=== PATIENT | female | born 1960 | race African-American/Black ===

== ENCOUNTER → 2020-03-22 | Day surgery (SDC) | payer OTHER ==
[~2020-03-22] MED LIST: LIDOCAINE HCL 1% 20ML VIAL (Pyxis) INJ ONE; SODIUM BICARBONATE 4% (2.4MEQ) 5ML VIAL IV ONE
== END | disposition home or self-care (01) ==
LOC: RAD 08:12
PROVIDERS: ATTEND Surgery
DX: C50.212 Malignant neoplasm of upper-inner quadrant of left female breast (principal)
CPT/HCPCS: 19285; J3490

== ENCOUNTER → 2020-03-25 | Outpatient (CLI) | payer OTHER ==
[~2020-03-25] MED LIST changes: +AMLO10TA80 PO; +AMLODIPI; +ATOR40TA70 PO; +HYDR25TA PO; -LIDOCAINE HCL 1% 20ML VIAL (Pyxis) INJ ONE; +LOSA50TA41 MT; +METF-414 PO; -SODIUM BICARBONATE 4% (2.4MEQ) 5ML VIAL IV ONE
== END | disposition home or self-care (01) ==
LOC: LAB 10:46
PROVIDERS: ATTEND Surgery
DX: Z03.818 Encounter for observation for suspected exposure to other biological agents ruled out (principal)
CPT/HCPCS: 87635; C9803-CS; U0003-CS

== ENCOUNTER 2020-03-27 05:50 | Day surgery (SDC) | payer OTHER ==
[~2020-03-27] VITALS: Ht 170.2 cm; Wt 118.8 kg
[2020-03-27] MEDS ORDERED: LOSA50TA41 MT (07:08)
[2020-03-27] MEDS ORDERED: AMLODIPI (07:08)
[2020-03-27] MEDS ORDERED: METF-414 PO (07:08)
[2020-03-27] MEDS ORDERED: AMLO10TA80 PO (07:10)
[2020-03-27] MEDS ORDERED: ATOR40TA70 PO (07:10)
[2020-03-27] MEDS ORDERED: HYDR25TA PO (07:10)
[2020-03-27] MEDS ORDERED: SODIUM CHLORIDE 0.9% 1,000 ML IV SCH (07:30)
[2020-03-27] MEDS ORDERED: METHYLENE BLUE 50 MG/10 ML AMP IV ONE (08:16)
[2020-03-27] MEDS ORDERED: SKIN ADHESIVE 0.7 GM EA TOP ONE (08:17)
[2020-03-27] MEDS ORDERED: SODIUM CHLORIDE 0.9% 10ML VIAL ONE ×3 (08:17→11:27)
[2020-03-27] MEDS ORDERED: BUPIVACAINE HCL 0.5% (5MG/ML) 50ML ONE (08:17)
[2020-03-27] MEDS ORDERED: INSULIN REGULAR (HUMULIN R) 300UNITS/3ML SUBCUT NR (08:19)
[2020-03-27] MEDS ORDERED: INSULIN REGULAR (HUMULIN R) UD 100 UNITS/ML SYR SUBCUT NR (08:30)
[2020-03-27] MEDS ORDERED: FENTANYL CITRATE/PF 50MCG/ML 2ML VIAL ONE (09:25)
[2020-03-27] MEDS ORDERED: MIDAZOLAM HCL 2 MG/2 ML VIAL ONE (09:26)
[2020-03-27] MEDS ORDERED: PROPOFOL 200MG/20ML VIAL IV ONE (09:27)
[2020-03-27] MEDS ORDERED: SUCCINYLCHOLINE CHLORIDE 200MG/10ML IV ONE (09:30)
[2020-03-27] MEDS ORDERED: ROCURONIUM BROMIDE 10MG/ML VIAL 5ML IV ONE (09:31)
[2020-03-27] MEDS ORDERED: ESMOLOL HCL 10MG/ML 10ML VIAL IV ONE (09:34)
[2020-03-27] MEDS ORDERED: CEFAZOLIN SODIUM 1000MG/VIAL ONE (09:47)
[2020-03-27] MEDS ORDERED: DEXAMETHASONE 4MG/ML 1ML VIAL ONE (10:01)
[2020-03-27] MEDS ORDERED: ONDANSETRON HCL 4MG/2ML INJ ONE (10:01)
[2020-03-27] MEDS ORDERED: EPHEDRINE SULFATE 50MG/ML VIAL ONE (10:12)
[2020-03-27] MEDS ORDERED: HYDRALAZINE 20MG/ML VIAL ONE (11:27)
[2020-03-27] MEDS: HYDROMORPHONE HCL/PF 2MG/ML CPJ IV PRN ×2 (12:07→12:43)
[2020-03-27 12:43] VITALS: BP 154/86
[2020-03-27] MEDS ORDERED: LABETALOL 5MG/ML SYR 20 MG/4 ML SYRINGE IV ONE (12:45)
[2020-03-27] MEDS ORDERED: INSULIN REGULAR (HUMULIN R) 300UNITS/3ML SUBCUT ONE (12:45)
== END 2020-03-27 13:25 | disposition home or self-care (01) ==
LOC: OR 05:50 → EDSTATUS 07:30 → OR 13:25
PROVIDERS: ATTEND Surgery
DX: C50.912 Malignant neoplasm of unspecified site of left female breast (principal); I11.0 Hypertensive heart disease with heart failure; I50.9 Heart failure, unspecified; E11.9 Type 2 diabetes mellitus without complications; E78.00 Pure hypercholesterolemia, unspecified; Z79.899 Other long term (current) drug therapy; Z98.890 Other specified postprocedural states
CPT/HCPCS: 19301; 38525; 78195; 82962; 88305; 88307; 88309; 88331; J0360; J0690; J1100; J1170; J1815; J2250; J2405; J2704; J3010; J3490; Q9968; J0330; A4648